=== PATIENT | male | born 1955 | race Caucasian/White ===

== ENCOUNTER 2018-03-15 12:41 | Day surgery (SDC) | payer OTHER ==
[~2018-03-15] VITALS: Ht 177.8 cm; Wt 102.1 kg
[~2018-03-15 12:41] MED LIST: ALLER-TEC10 MG PO; ASPIRIN EC81 MG PO; FISH OIL 1,0001 EAC1 PO; HYDROCODON-ACE1 EA10 PO; HYZAAR 50-12.5 T1 EA PO; IBUPROFEN400 MG PO; MULTI VITAMIN1 EACH PO; SIMVASTATIN40 MG PO
[2018-03-15] MEDS ORDERED: ALEVE220 M1 PO (13:00)
--- NOTE | 2018-03-15 15:38 | NUR ---
03/15/18 1538 Elo Will 1535-PATIENT ARRIVED TO PACU ON 2L NC O2 SAT 96% PATIENT AWAKE DROWSY DENIES PAIN OR NAUSEA. ABDOMEN ROUND AND SOFT ENOCOURAGED TO PASS FLATUS.
--- NOTE | 2018-03-16 08:49 | OR ---
[facility] [address], [place] [address] Signed DATE OF OPERATION: 03/15/2018 SURGEON: Bonilla Hall MD PREOPERATIVE DIAGNOSES: History of polyps, distant past and known hemorrhoidal disease with history of hemorrhoidal banding. POSTOPERATIVE DIAGNOSES: 1. 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 2. Internal and external hemorrhoidal changes. PROCEDURE: Total colonoscopy to cecum. ANESTHESIA: Intravenous sedation, fentanyl 150 mcg, and Versed 5 mg. INDICATION: A 63-year-old white man is a patient of HALEY Stoner. He was referred for surveillance colonoscopy. He is said to have had polyps in the past undergoing colonoscopy greater than 10 years ago in [place], [place]. He is also noted to have had hemorrhoidal changes for which hemorrhoidal banding was undertaken. He is admitted at this time to undergo surveillance colonoscopy, understand the risks of bleeding, infection, and perforation. FINDINGS: Prep was excellent. Complete colonoscopy was undertaken to the cecum. There were numerous diverticula of the sigmoid and left colon. There were internal hemorrhoids, but they were accompanied largely with external hemorrhoidal components as well. DESCRIPTION OF PROCEDURE: The patient was brought to the endoscopy suite and placed in lateral decubitus position given intravenous sedation to the point of slurred speech and nystagmus. Digital rectal examination showed external hemorrhoidal changes. An Olympus video colonoscope was passed in the rectum and manipulated throughout the colon ultimately intubating the cecum itself. The scope was withdrawn from that point. Findings included diverticular changes scattered throughout the colon, but most dominantly in the left colon and sigmoid colon. Retroflexed view in the rectum showed internal hemorrhoidal changes in addition to the external component. Scope was removed and the patient was taken to the Electronically Signed By: BONILLA HALL MD 03/16/18 0849 PATIENT NAME: ZAKI BARCLAY OPERATIVE REPORT DATE OF : 55 REPORT #: [id number] PHYSICIAN: BONILLA HALL MD PCP: LIA GARRIDO PAC REPORT IS CONFIDENTIAL AND NOT TO BE RELEASED WITHOUT AUTHORIZATION [facility] [address], [place] [address] Signed recovery room in good condition. CONCLUDING DIAGNOSES: 1. Diverticular changes, no sign of polyps. 2. Hemorrhoidal changes. PLAN: Recommend high-fiber diet generally. If he wishes to pursue hemorrhoidal evaluation and treatment, most likely he would require operative hemorrhoidectomy as the external component of his hemorrhoids would disqualify a hemorrhoidal banding approach. He will think about it. MD ELIZA Escamilla/CHAKA /[id number] cc: HALEY Stoner Copies: ~ Electronically Signed By: BONILLA HALL MD 03/16/18 0849 PATIENT NAME: ZAKI BARCLAY OPERATIVE REPORT DATE OF : 55 REPORT #: [id number] PHYSICIAN: BONILLA HALL MD PCP: LIA GARRIDO PAC REPORT IS CONFIDENTIAL AND NOT TO BE RELEASED WITHOUT AUTHORIZATION
== END 2018-03-15 16:20 | disposition home or self-care (01) ==
LOC: OPS 12:41 → DS 12:41 → OPS 13:45 → DS 13:45 → OPS 16:20
PROVIDERS: Surgery
PROC: 0DJD8ZZ Inspection of Lower Intestinal Tract, Via Natural or Artificial Opening Endoscopic (ICD-10-PCS; principal; 2018-03-15 13:45)
DX: Z12.11 Encounter for screening for malignant neoplasm of colon (principal); K64.4 Residual hemorrhoidal skin tags; K57.30 Diverticulosis of large intestine without perforation or abscess without bleeding; G47.30 Sleep apnea, unspecified; I10 Essential (primary) hypertension; Z86.010 Personal history of colon polyps; Z98.890 Other specified postprocedural states
CPT/HCPCS: 99153; G0500; J2250; J3010; J7120